=== PATIENT | female | born 1960 | race Caucasian/White ===

== ENCOUNTER 2016-08-14 20:20 | Emergency (ER) | payer OTHER ==
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
[~2016-08-14 20:20] MED LIST: ALBUTEROL17 GM INH; ALPRAZOLAM; AMOXICILLIN500 M1 PO; BACTRIM DS TABL1 TA1 PO; BENZONATATE PO; CELEXA20 MG PO; CLEOCIN HCL300 M1 PO; FLEXERIL PO; FLONASE16 GM; GLUCOPHAGE XR500 MG PO; GLUCOTROL PO; IBUPROFEN PO; IBUPROFEN800 MG PO; K-DUR20 ME1 PO; KEFLEX PO; KEFLEX250 M1 PO; KEFLEX500 MG PO; LAMICTAL100 MG PO; LAMICTAL5 MG; LANTUS100 U/M1; LANTUS100 U/ML SUBQ; LASIX PO; LEVAQUIN PO; LIPITOR PO; LISINOPRIL; LORTAB 101 TAB 10/5 PO; LORTAB 5/500 TA1 TA1 PO; LORTAB 7.5-5001 TAB PO; LYRICA PO; MEDROL DOSEPAK4 MG PO; MOBIC PO; NABUMETONE PO; NAPROSYN500 MG PO; PERCOCET 5-3251 TAB PO; PERCOCET5/325 PO; PREDNISONE PO; RANITIDINE HCL150 M1 PO; REMERON15 MG PO; SEROQUEL XR50 MG; TOPIRAMATE50 MG PO; ULTRAM; ULTRAM PO; VALIUM10 MG PO; VICODIN 5/500 T1 TAB PO; VITAMIN D 4001 UDTAB PO; VITAMIN D PO; VOLTAREN75 MG PO; WELLBUTRIN XL150 MG PO; ZANAFLEX PO; ZANTAC PO; ZESTORETIC 10/11 TAB PO; ZITHROMAX1 G/PKT PO; ZOFRAN ODT4 MG PO; [UNRECOGNIZED DRUG - OTHER]
[2016-08-14] MEDS ORDERED: LISINOPRIL (20:36)
[2016-08-14] MEDS ORDERED: VIT E (20:36)
[2016-08-14] MEDS ORDERED: LORTAB 10-3251 EACH PO (20:36)
== END 2016-08-14 23:13 | disposition home or self-care (01) ==
LOC: SED 20:20
DX: S39.012A Strain of muscle, fascia and tendon of lower back, initial encounter (principal); S63.501A Unspecified sprain of right wrist, initial encounter; S40.011A Contusion of right shoulder, initial encounter; S80.02XA Contusion of left knee, initial encounter; R03.0 Elevated blood-pressure reading, without diagnosis of hypertension; F17.210 Nicotine dependence, cigarettes, uncomplicated; E11.9 Type 2 diabetes mellitus without complications; J44.9 Chronic obstructive pulmonary disease, unspecified; F31.9 Bipolar disorder, unspecified; Z88.5 Allergy status to narcotic agent; Z79.899 Other long term (current) drug therapy; Z91.040 Latex allergy status; Y04.0XXA Assault by unarmed brawl or fight, initial encounter; Y07.499 Other family member, perpetrator of maltreatment and neglect; Y92.009 Unspecified place in unspecified non-institutional (private) residence as the place of occurrence of the external cause
CPT/HCPCS: 29125; 72100; 73030; 73110; 73560; 96372; 99284; J1885

== ENCOUNTER 2016-08-22 16:59 | Emergency (ER) | payer OTHER ==
[~2016-08-22 16:59] MED LIST changes: +LORTAB 10-3251 EACH PO; +VIT E
== END 2016-08-22 18:19 | disposition home or self-care (01) ==
LOC: SED 16:59
DX: S61.412A Laceration without foreign body of left hand, initial encounter (principal); F17.210 Nicotine dependence, cigarettes, uncomplicated; J44.9 Chronic obstructive pulmonary disease, unspecified; I25.2 Old myocardial infarction; F31.9 Bipolar disorder, unspecified; F20.9 Schizophrenia, unspecified; K75.89 Other specified inflammatory liver diseases; Z79.891 Long term (current) use of opiate analgesic; Z79.899 Other long term (current) drug therapy; Z88.5 Allergy status to narcotic agent; Z88.8 Allergy status to other drugs, medicaments and biological substances; Z91.040 Latex allergy status; Z23 Encounter for immunization; W26.0XXA Contact with knife, initial encounter; Y93.89 Activity, other specified; Y92.009 Unspecified place in unspecified non-institutional (private) residence as the place of occurrence of the external cause; Y99.8 Other external cause status
CPT/HCPCS: 12001; 90471; 90715; 99283